=== PATIENT | male | born 1965 | race Caucasian/White ===

== ENCOUNTER → 2018-10-20 | Outpatient (CLI) | payer MEDICARE ==
--- NOTE | 2018-10-20 14:37 | RADIOLOGY IMAGING REPORT ---
[place] [facility] [place]: Juan David Laird : 1965 MR: [id number] V: [id number] EXAM DATE: ORDERING PHYSICIAN: JAYLEN TERESA [place]CHN[place] [facility] [place] [place] David L[place] : 1965 Visit/Account:[id number] Date of Sevice: 10/20/2018 CHEST PA LAT HISTORY: Evaluate for abnormality. Lab irregularity and loss of muscle strength. COMPARISON: None FINDINGS: Cardiomediastinal contours: The heart size is normal. Lungs and pleura: There is no finding of an infiltrate, lymphadenopathy or pleural effusion. Bones/soft tissues: There are no findings of a fracture. IMPRESSION: Normal chest x-ray without findings of acute disease. Report Dictated By: Kenrick Francis MD at 10/20/2018 2:26 PM Report E-Signed By: Kenrick Francis MD at 10/20/2018 2:27 PM WSN:[id number]
== END ==
LOC: RAD 12:17
PROVIDERS: ATTEND Family Medicine
DX: R79.9 Abnormal finding of blood chemistry, unspecified (principal)
CPT/HCPCS: 71046